=== PATIENT | male | born 1975 | race Two or more races ===

== ENCOUNTER 2016-06-28 06:16 | Day surgery (SDC) | payer OTHER ==
[~2016-06-28] VITALS: Ht 172.7 cm; Wt 104.8 kg
[~2016-06-28 06:16] MED LIST: ACET325T9 PO; AMLO5TAB4 PO; BACITRACIN 50,000 UNIT in IV NORMAL SALINE 1000ML BAG 1,000 ML IRR ONE; DOCU-27 PO; HYDR12.53 PO; IBUP-1007 PO; LEVO25TA55 PO; METH-38 PO; TRAM50TA PO; VANCOMYCIN 1GM IVPB FOR OMNI 250 ML IV PRN
[2016-06-28] MEDS ORDERED: MORPHINE SULFATE 2 MG/ML DISP.SYRIN. IV PRN (07:00)
[2016-06-28] MEDS ORDERED: LIDOCAINE 1% 1 ML SYRINGE. ID PRN (07:00)
[2016-06-28] MEDS ORDERED: IV RINGERS,LACTATED 1000ML 1,000 ML IV SCH (07:00)
[2016-06-28] MEDS ORDERED: ONDANSETRON PF 4 MG/2 ML VIAL. IV PRN (07:00)
[2016-06-28] MEDS ORDERED: fentaNYL PF VIAL 100 MCG/2 ML VIAL IV PRN (07:00)
[2016-06-28] MEDS ORDERED: HYDROmorphone 2 MG/ML VIAL IV PRN (07:00)
[2016-06-28] MEDS ORDERED: PROCHLORPERAZINE 10 MG/2 ML VIAL. IV PRN (07:00)
[2016-06-28] MEDS ORDERED: SCOPOLAMINE 1.5MG PATCH. TD SCH (07:00)
[2016-06-28] MEDS ORDERED: GELATIN SPONGE SIZE 100. ONE (07:34)
[2016-06-28] MEDS ORDERED: LIDOCAINE 1%/EPI 1:100,000 20 ML VIAL. ONE (07:34)
[2016-06-28] MEDS ORDERED: THROMBIN TOPICAL 20,000 UNIT SPRAY.SYRN KIT TP ONE (07:34)
[2016-06-28] MEDS ORDERED: BUPIVACAINE 0.5% 50 ML VIAL. ONE (07:34)
[2016-06-28] MEDS ORDERED: PROPOFOL 100 ML IV ONE (07:59)
[2016-06-28] MEDS ORDERED: REMIFENTANIL 2 MG VIAL. IV ONE (08:07)
[2016-06-28] MEDS ORDERED: fentaNYL PF VIAL 100 MCG/2 ML VIAL ONE (08:07)
[2016-06-28] MEDS ORDERED: ONDANSETRON PF 4 MG/2 ML VIAL. ONE (08:07)
[2016-06-28] MEDS ORDERED: MIDAZOLAM HCL/PF 2 MG/2 ML VIAL. ONE (08:07)
[2016-06-28] MEDS ORDERED: PROPOFOL 20 ML IV ONE (08:07)
[2016-06-28] MEDS ORDERED: DEXAMETHASONE SOD PHOS 20 MG/5 ML VIAL. ONE (08:07)
[2016-06-28] MEDS ORDERED: LIDOCAINE 2% 100 MG/5 ML SYRINGE. ONE (08:07)
[2016-06-28] MEDS ORDERED: ROCURONIUM 50 MG/5 ML VIAL. ONE (08:07)
[2016-06-28] MEDS ORDERED: DESFLURANE > 120 MINUTES IH ONE (08:07)
[2016-06-28] MEDS ORDERED: 0.9 % SODIUM CHLORIDE 50 ML VIAL. IJ ONE (08:08)
[2016-06-28] MEDS ORDERED: MINERAL OIL/PETROLATUM,WHITE OPHTH OINT 3.5GM TUBE. ONE (08:08)
[2016-06-28] MEDS ORDERED: PHENYLEPHRINE 10 MG/ML VIAL. ONE (09:29)
[2016-06-28] MEDS: fentaNYL PF VIAL 100 MCG/2 ML VIAL IV PRN ×2 (11:00→11:05)
--- NOTE | 2016-06-28 11:14 | DISCH ---
DISCHARGE INSTRUCTIONS Condition on Discharge Condition on Discharge: Stable Activity After Discharge Activity Instructions for Disc: Progressive ambulation, Other, see below ( avoid strenuous activity, avoid excessive twisting or bending, no lifting more than 10lbs) Lifting Instructions after Dis: Do not lift >10 pounds Diet after Discharge Diet Texture: Regular Wound Incision Care Wound/Incision Care: Other, see below (keep incision clean and dry, do not soak , scrub, or submerge; may remove dressing day 3 after surgery) Contacting the after DC Call your doctor for: Concerns you may have Follow-Up Follow up with: Dr. Chao in two weeks [phone] SEBASTIEN CHAO MD Jun 28, 2016 11:14
[2016-06-28] MEDS ORDERED: OXYCODONE/APAP 5/325 TABLET. PO ONE (11:30)
[2016-06-28] MEDS ORDERED: OXYC-323 PO (11:32)
[2016-06-28 12:25] VITALS: BP 150/90
--- NOTE | 2016-06-28 13:28 | PDOC ---
BRIEF OPERATIVE NOTE Date: Jun 28, 2016 Pre-Op Diagnosis lumbar disk herniation, lumbar radiculopathy, weakness Post-Op Diagnosis same Procedure Performed right lumbar 4-5 hemilaminotomy with discectomy Surgeon Anabela Financial Aid Director none Anesthesia Type: General Blood Loss 20mL Specimens Obtained disk and decompression Findings large herniated disk fragment Complications none apparent SEBASTIEN CHAO MD Jun 28, 2016 13:28
--- NOTE | 2016-06-28 15:10 | OP ---
DATE OF SURGERY: 06/28/2016 SURGEON: Isac Chao M.D. ACADEMIC SPECIALIST: None. PREOPERATIVE DIAGNOSES: Herniated lumbar disk with lumbar radiculopathy and weakness. POSTOPERATIVE DIAGNOSES: Herniated lumbar disk with lumbar radiculopathy and weakness. PROCEDURE: Right lumbar 4-5 hemilaminotomy with diskectomy with intraoperative neuromonitoring and intraoperative use of microscope. ANESTHESIA: General. COMPLICATIONS: None intraprocedurally. INDICATIONS FOR THE PROCEDURE: The patient is a 40-year-old male who presents with significant right lower extremity pain with ankle weakness, was found to have a prominent disk herniation on the right at lumbar 4-5 with mass effect on the adjacent neural elements. Please refer to the patient chart for additional details. DESCRIPTION OF PROCEDURE: After informed consent was obtained, the patient was brought into the operating room. He was placed under general anesthesia. Neuro monitoring was instituted and baseline potentials were obtained. The patient was placed in the prone position on the Myke frame. All pressure points were checked and padded appropriately. The lumbar region was then prepped and draped in usual sterile fashion. The patient had a previous incision site from the prior L5-S1. Diskectomy done many years ago by another surgeon. Fluoroscopy was utilized to verify the appropriate incision location and the prior incision was noted to be adequate for the lumbar 4-5 procedure. The incision was reopened with a 10 blade scalpel. Monopolar electrocautery was utilized to dissect the avascular midline spinous processes at lumbar 4 and 5 and rightward across the lamina dislocation. Level was verified with fluoroscopy prior to the initiation of decompression, a right hemilaminotomy was performed at dislocation with a pneumatic drill as well as a Kerrison rongeur. The underlying ligament was then gently dissected from the thecal sac with a Terry and nerve hook and removed with a Kerrison rongeur and a prominent annulus was identified and a small annulotomy was performed with 11 blade scalpel, large amount of disk material emerged under pressure. This was gently teased posterolaterally with a blunt nerve hook and removed with pituitary rongeur. A large ____ was removed in this fashion. Additional smaller fragments were also removed with pituitary rongeur. Upon completion of this, the adjacent neural elements were noted to be very well decompressed. This was verified with direct visualization as well as gentle palpation with Terry. Upon completion of decompression and diskectomy, it was also noted that neuro monitoring potentials were slightly improved compared to baseline. Pristine hemostasis was achieved with FloSeal, cottonoids, irrigation and some use of bipolar electrocautery. The wound was generously irrigated with antibiotic irrigation prior the final closure. The muscles and fascia were then reapproximated with 0 Vicryl in simple interrupted fashion. Subcutaneous tissues were reapproximated with 2-0 Vicryl in interrupted inverted fashion and the skin was reapproximated with 4-0 Vicryl in a running subcuticular fashion. Mastisol and Steri-Strips were applied and the wound was dressed with Telfa and Tegaderm. At the end of procedure, all needle and sponge counts correct x 2. The patient was extubated in the operating room and taken to recovery in stable condition. There were no intraprocedural complications apparent. ISAC CHAO MD DR: GERSON/juliet JOB#: [id number] / [id number]
--- NOTE | 2016-07-01 16:51 | PATHOLOGY ---
PATHOLOGY REPORT * * * * * * * * FINAL DIAGNOSIS: Segments of fibrocartilaginous tissue and bone, right lumbar disc and decompression: - Degenerative changes of fibrocartilaginous tissue. COMMENT: There is no evidence of an acute inflammatory process or malignancy. (JPM:; d/t: 07/01/16) REPORT ELECTRONICALLY SIGNED BY: Scott Cunningham M.D. DATE/TIME: 07/01/2016 16:50 * * * * * * * * GROSS PATHOLOGY: Received in formalin labeled "Bola Duran, right lumbar disc and decompression" are multiple segments of payan, rubbery, and gritty tissue admixed with bone. The specimen measures 3.5 x 3.4 x 0.8 cm in aggregate dimensions. The tissue is submitted representatively in cassette A1, following decalcification. (CAA; 06/28/2016) INITIAL CPT CODE(S): A; 95148, 15322 Professional services performed [place] [facility] [address] Technical services performed by [facility] at [address] [place] [address]. [facility] fax attention: Danita Mckinnon SPECIMEN(S) RECEIVED: A.Right lumbar disc and decompression CLINICAL HISTORY: Lumbar radiculopathy, other intervertebral disc displacement lumbar region PATIENT: BOLA DURAN /AGE: 9 1975 (Age: 40) PATIENT #: [id number] ALT CASE #: SPECIMEN COLLECTION DATE: 06/28/2016 SPECIMEN RECEIVED DATE: 06/28/2016 [facility] - [address] [place] [address] - PHONE: [phone] * * * END OF REPORT * * *
== END 2016-06-28 12:46 | disposition home or self-care (01) ==
LOC: SURG 06:16 → EDBD 06:16 → SURG 12:46
PROVIDERS: ATTEND Neurological Surgery
DX: M51.16 Intervertebral disc disorders with radiculopathy, lumbar region (principal); E66.9 Obesity, unspecified; E03.9 Hypothyroidism, unspecified; I10 Essential (primary) hypertension; Z87.39 Personal history of other diseases of the musculoskeletal system and connective tissue
CPT/HCPCS: 63030; 76000; 87641; J1100; J2250; J2405; J2704; J3010; J3370; J3490; J7030; J7120; 36415; 88304; 88311; J0780

== ENCOUNTER → 2016-09-26 | Outpatient (CLI) | payer OTHER ==
[~2016-09-26] MED LIST changes: -BACITRACIN 50,000 UNIT in IV NORMAL SALINE 1000ML BAG 1,000 ML IRR ONE; +DOCU-109 PO; -DOCU-27 PO; +GADOBUTROL 10 MMOL/10 ML VIAL IV ONE; +OXYC-323 PO; -VANCOMYCIN 1GM IVPB FOR OMNI 250 ML IV PRN
--- NOTE | 2016-09-26 09:18 | KCIC ---
MRI STUDY OF THE LUMBAR SPINE WITH AND WITHOUT CONTRAST Clinical indications: Right-sided lumbar radiculopathy. Status post L4-5 surgery 3 months ago. TECHNIQUE: Pre and postcontrast enhanced MRI sequences of the lumbar spine were performed in the sagittal and axial planes. A total of 10 cc of Gadavist was given intravenously. COMPARISON: None available facility. FINDINGS: No compression fracture or discitis or marrow infiltrative process is seen. The conus medullaris ends at the T12 level and appears normal morphologically and no abnormal enhancement is seen. No abnormal spinal canal enhancement is seen. At T12-L1, no focal disc protrusion or spinal canal stenosis or neural foraminal narrowing is seen. At L1-L2, no focal disc protrusion or spinal canal stenosis or neural foraminal narrowing is seen. At L2-3, no focal disc protrusion or spinal canal stenosis or neural foraminal narrowing is seen. At L3-L4, mild degenerative endplate spurring is seen with mild diffuse disc bulging. There is a small right lateral extradural defect. There is enhancement here consistent with epidural fibrosis. There is enhancement of the posterior annulus consistent with granulation tissue which may be secondary to previous partial discectomy. Partial laminectomy on the right side is seen at this level. No significant spinal canal stenosis or neural foraminal narrowing is seen. At L4-5, mild retrolisthesis is seen. There is moderate degenerative endplate spurring and mild diffuse disc bulging which extends into the inferior aspect of the neural foramina bilaterally. There is mild narrowing of the neural foramina bilaterally. There is a partial laminectomy on the right side at this level. There is a small extradural defect on the right side. There is enhancement of this area consistent with epidural fibrosis. There is enhancement of the descending right L5 nerve root as it exits the thecal sac consistent with perineural fibrosis. There is enhancement of the posterior annulus consistent with granulation tissue secondary to a partial discectomy. No significant spinal canal stenosis is seen. At L5-S1, no focal disc protrusion or spinal canal stenosis or neural foraminal narrowing is seen. There is edema of the paraspinous muscles and soft tissues on the right side from the L3 through S1 levels consistent with postoperative soft tissue edema. IMPRESSION: Right-sided epidural fibrosis at L3-4 and L4-5 with perineural fibrosis of the descending right L5 nerve root at L4-5 secondary to recent partial discectomy at L3-4 and L4-5. No recurrent focal disc protrusion or extrusion is seen at these levels. No epidural abscess or hematoma is evident. No significant spinal canal stenosis. Mild bilateral neural foraminal narrowing at L4-5. No acute compression fracture. Electronically signed by: Filipe Flores MD (09/26/2016 9:15 AM) [id number]
== END | disposition home or self-care (01) ==
LOC: KCIC MRI 07:37
PROVIDERS: ATTEND Neurological Surgery
DX: M54.12 Radiculopathy, cervical region (principal)
CPT/HCPCS: 72158; A9585

== ENCOUNTER → 2017-06-17 | Outpatient (CLI) | payer OTHER ==
[2017-06-17] MEDS: LIDOCAINE 1% Multi-Dose 20 ML VIAL. ID (10:45)
[2017-06-17] MEDS: BUPIVACAINE MPF 0.5% 10 ML VIAL for KCIC. IJ (10:45)
[2017-06-17] MEDS: IOHEXOL 300 MG/ML 50 ML VIAL. INT ART (10:45)
[2017-06-17] MEDS: methylPREDNISolone ACETATE 40 MG/ML VIAL. INT ART (10:45)
== END | disposition home or self-care (01) ==
LOC: KCIC 09:46
DX: M19.011 Primary osteoarthritis, right shoulder (principal); G89.29 Other chronic pain
CPT/HCPCS: 20610; 77002; J1030; Q9967

== ENCOUNTER → 2019-05-12 | Outpatient (CLI) | payer OTHER ==
[2017-08-27 09:53] VITALS: BP_DIAS 55
[~2019-05-12] MED LIST changes: +AMLO10TA4 PO; +ASPI-630 PO; -GADOBUTROL 10 MMOL/10 ML VIAL IV ONE; +GADOTERATE 7.5 MMOL/15ML VIAL. IVP ONE; +HYDR-2145 PO; -HYDR12.53 PO; +HYDR12.575 PO; +LORA10CA PO; -OXYC-323 PO; +OXYC1TAB15 PO; +PANT20TA2 PO; +SIMV10TA15 PO
--- NOTE | 2019-05-12 11:55 | KCIC ---
MRI Lumbar Spine without and with contrast History: Low back pain, previous surgeries, new right hip and leg pain for 3 months Technique: Multiplanar, multi sequential pre and postcontrast MR imaging was performed of the lumbar spine. Comparison: September 26, 2016 Findings: There is again likely transitional anatomy. The same numbering is utilized as for previous exam. Most inferior formed, although rudimentary intervertebral disc space is considered L5-S1. There is again minimal posterior subluxation of what is considered L4 relative to L5. Lumbar vertebral body stature is overall maintained. There is again fairly severe degenerative disc disease at L4-5 and minimally at L3-4. There is no significant marrow edema. There is no nodular enhancement of the conus or cauda equina, no enhancement in the intervertebral disc spaces. Conus terminates near T12-L1. There is posterior annular tear L4-5. L1-L2: Neural foramina and spinal canal are adequate. L2-L3: Neural foramina and spinal canal are adequate. L3-L4: There is very shallow protrusion with adjacent enhancing fibrosis in the anterior far right lateral recess, mild indentation upon the ventral thecal sac and contact of the descending right L4 nerve root by enhancing fibrosis with very minimal posterior displacement, minimal narrowing of the far right lateral recess. Neural foramina are adequate. L4-L5: There is again disc osteophyte complex superimposed on the posteriorly subluxed L4 vertebral body margin, near the ventral surfaces of the descending L5 nerve roots without significant displacement. There is mild enhancing fibrosis in the anterior far right lateral recess near the ventral surface descending right L5 nerve root. Spinal canal is overall adequate. There is minimal perineural enhancement about the descending right S1 nerve root. There is moderate to severe narrowing of the right neural foramen from disc osteophyte complex and facet with contact of the exiting right L5 nerve root, overall mild narrowing of the left neural foramen with contact undersurface exiting left L4 nerve root by disc osteophyte complex also unchanged. There is again right laminectomy defect. L5-S1: Neural foramina and spinal canal are adequate. Impression: 1. There is transitional anatomy, minimal posterior subluxation of what is considered L4 relative to L5, assumption of 5 lumbar type vertebral bodies. There is no new significant lumbar spinal stenosis, mild right lateral recess stenosis at L3-4 and disc osteophyte complex at L4-5 near the descending L5 nerve roots without significant displacement. There is moderate to severe narrowing of the right L4-5 neural foramen with contact exiting right L4 nerve root, mild narrowing of the left L4-5 neural foramen with contact exiting left L4 nerve root by disc osteophyte complex. There is fairly advanced degenerative disc disease at L4-5, minimally at L3-4. There is mild spondylosis.. Electronically signed by: Elías Donaldson MD (05/12/2019 11:53 AM) [id number]
== END | disposition home or self-care (01) ==
LOC: KCIC MRI 08:37
DX: M51.36 Other intervertebral disc degeneration, lumbar region (principal); M53.2X6 Spinal instabilities, lumbar region; M51.26 Other intervertebral disc displacement, lumbar region; M25.78 Osteophyte, vertebrae; M48.061 Spinal stenosis, lumbar region without neurogenic claudication; M47.816 Spondylosis without myelopathy or radiculopathy, lumbar region; I10 Essential (primary) hypertension; Z88.8 Allergy status to other drugs, medicaments and biological substances; Z79.01 Long term (current) use of anticoagulants
CPT/HCPCS: 72158; A9575

== ENCOUNTER 2019-10-12 05:59 | Inpatient (IN) | payer OTHER ==
[2019-10-12] VITALS (13 sets, daily range): BP systolic 108–146; BP diastolic 61–99
[~2019-10-12] VITALS: Ht 172.7 cm; Wt 100.7 kg
[~2019-10-12 05:59] MED LIST changes: -GADOTERATE 7.5 MMOL/15ML VIAL. IVP ONE; +MAGN100T6 PO; +PROP20TA PO
[2019-10-12] MEDS ORDERED: BACITRACIN 50,000 UNIT in IV NORMAL SALINE 1000ML BAG 1,000 ML IRR ONE (06:00)
[2019-10-12 06:32] LABS: BASO % 1 % (0-3); EOS # 0.3 x10^3/uL (0.0-0.7); EOS % 4 % (0-3); HEMATOCRIT 41.2 % (39.0-53.0); HEMOGLOBIN 14.4 g/dL (13.0-17.5); LYMPH # 2.6 x10^3/uL (1.0-4.8); LYMPH % 38 % (24-48); MEAN CORPUSCULAR HEMOGLOBIN 28 pg (25-35); MEAN CORPUSCULAR HGB CONC 35 g/dL (31-37); MEAN CORPUSCULAR VOLUME 81 fL (79-100); MONO # 0.6 x10^3/uL (0.0-1.1); MONO % 9 % (0-9); NEUT # 3.3 x10^3/uL (1.8-7.7); NEUT % 48 % (31-73); PLATELET COUNT 244 x10^3/uL (140-400); RED BLOOD COUNT 5.12 x10^6/uL (4.30-5.70); RED CELL DISTRIBUTION WIDTH 13.2 % (11.5-14.5); WHITE BLOOD COUNT 6.8 x10^3/uL (4.0-11.0)
--- NOTE | 2019-10-12 06:42 | EKG ---
[facility] [address] [place] [address] Test Date: 2019-10-12 Test Time: 06:38:46 Pat Name: SULY DELVALLE Department: Room: [place] [address] Gender: M Delivery Tech: SHAY : 1975 Requested By: SEBASTIEN CHAO Order Number: [id number] Reading MD: Measurements Intervals [place] Rate: 75 P: 39 NM: 200 QRS: 22 QRSD: 102 T: 24 QT: 396 QTc: 445 Interpretive Statements SINUS RHYTHM NORMAL ECG RI6.01 No previous ECG available for comparison
[2019-10-12 06:49] LABS: ALBUMIN 4.5 g/dL (3.4-5.0); ALBUMIN/GLOBULIN RATIO 1.3 (1.0-1.7); CALCIUM 9.3 mg/dL (8.5-10.1); CREATININE 0.9 mg/dL (0.7-1.3); GFR 92.1; POTASSIUM 3.5 mmol/L (3.5-5.1); TOTAL BILIRUBIN 0.7 mg/dL (0.2-1.0); TOTAL PROTEIN 8.1 g/dL (6.4-8.2)
[2019-10-12 06:54] LABS: PROTHROMBIN TIME PATIENT 13.7 SEC (11.7-14.0)
[2019-10-12] MEDS ORDERED: ONDANSETRON PF 4 MG/2 ML VIAL. IV PRN (07:00)
[2019-10-12] MEDS ORDERED: HYDROmorphone 2 MG/ML VIAL IV PRN (07:00)
[2019-10-12] MEDS ORDERED: fentaNYL PF VIAL 100 MCG/2 ML VIAL IV PRN (07:00)
[2019-10-12] MEDS ORDERED: MORPHINE SULFATE 2 MG/ML VIAL. IV PRN (07:00)
[2019-10-12] MEDS ORDERED: IV RINGERS,LACTATED 1000ML 1,000 ML IV SCH (07:00)
[2019-10-12] MEDS ORDERED: PROCHLORPERAZINE 10 MG/2 ML VIAL. IV PRN (07:00)
--- NOTE | 2019-10-12 07:01 | RAD ---
PA and lateral chest x-rays HISTORY: Preoperative evaluation for lumbar fusion. FINDINGS: Heart size normal. Mediastinal silhouette is normal. No pneumothorax, pulmonary opacities or pleural effusions. Bones are unremarkable. IMPRESSION: No acute process. Electronically signed by: Kana Demarco MD (10/12/2019 6:58 AM) [facility]
[2019-10-12] MEDS ORDERED: BUPIVACAINE-EPI 0.5%-1:200000 MPF 30 ML VIAL. ONE (07:02)
[2019-10-12] MEDS ORDERED: GELATIN SPONGE SIZE 100. ONE (07:02)
[2019-10-12] MEDS ORDERED: LIDOCAINE 1%/EPI 1:100,000 20 ML VIAL. ONE (07:03)
[2019-10-12] MEDS ORDERED: THROMBIN TOPICAL 20,000 UNIT SPRAY.SYRN KIT TP ONE (07:03)
[2019-10-12] MEDS ORDERED: SCOPOLAMINE 1.5MG PATCH. TD ONE (07:27)
[2019-10-12] MEDS ORDERED: PHENYLEPHRINE 10 MG/ML VIAL. ONE (07:42)
[2019-10-12] MEDS ORDERED: PROPOFOL 10 MG/ML (20ML) VIAL. IV ONE (07:43)
[2019-10-12] MEDS ORDERED: fentaNYL PF VIAL 100 MCG/2 ML VIAL ONE ×2 (07:43→14:02)
[2019-10-12] MEDS ORDERED: LIDOCAINE 2% PF 5 ML VIAL. ONE (07:43)
[2019-10-12] MEDS ORDERED: MIDAZOLAM HCL/PF 2 MG/2 ML VIAL. ONE (07:43)
[2019-10-12] MEDS ORDERED: DEXAMETHASONE SOD PHOS 4 MG/ML VIAL ONE (07:44)
[2019-10-12] MEDS ORDERED: ONDANSETRON PF 4 MG/2 ML VIAL. ONE (07:44)
[2019-10-12] MEDS ORDERED: ROCURONIUM 50 MG/5 ML VIAL. ONE (07:46)
[2019-10-12] MEDS ORDERED: SUCCINYLCHOLINE 200 MG/10 ML VIAL. ONE (07:47)
[2019-10-12] MEDS ORDERED: 0.9 % SODIUM CHLORIDE 20 ML VIAL. IJ ONE ×2 (07:48→10:51)
[2019-10-12] MEDS ORDERED: REMIFENTANIL 2 MG VIAL. IV ONE ×2 (07:50→10:51)
[2019-10-12] MEDS ORDERED: PROPOFOL 0 ML IV ONE (07:55)
--- NOTE | 2019-10-12 08:00 | RAD ---
CT LUMBAR SPINE WO CONTRAST History:Reason: BRAIN LAB. LUMBAR STENOSIS, RADICULOPATHY / Spl. Instructions: / History: Technique: Noncontrast CT was performed of the lumbar spine. Multiplanar reconstructions were performed. Exposure: One or more of the following individualized dose reduction techniques were utilized for this examination: 1. Automated exposure control 2. Adjustment of the mA and/or kV according to patient size 3. Use of iterative reconstruction technique. Comparison: MRI May 12, 2019 Findings: Transitional lumbosacral anatomy with sacralization of L5. L5-S1 is identified on axial sequence 2 image 205. Normal vertebral body height. No fracture. Slight retrolisthesis L4 on L5, unchanged. T12-L1: Minimal disc bulge. No canal or neuroforaminal narrowing. L1-L2: Minimal disc bulge. No canal or neuroforaminal narrowing. L2-L3: Broad-based disc bulge. Subarticular recess narrowing. No canal narrowing. No neuroforaminal narrowing. Mild facet arthropathy. L3-L4: Broad based disc bulge. Mild subarticular recess narrowing. No canal narrowing. Mild facet arthropathy. No neuroforaminal narrowing. L4-L5: Retrolisthesis. Vacuum disc phenomenon. Broad-based disc bulge. Right greater left subacute recess narrowing with abutment of the right descending L5 nerve root. No canal narrowing. Moderate facet arthropathy. Moderate right and mild to moderate left neuroforaminal narrowing. L5-S1: No canal or neuroforaminal narrowing. Impression: 1. Transitional lumbosacral anatomy with sacralization of L5. 2. Multilevel lumbar spondylosis most prominent L4-5. 3. Neuroforaminal narrowing most prominent L4-5. Electronically signed by: Nino Owens DO (10/12/2019 7:57 AM) [id number]
[2019-10-12] MEDS ORDERED: BUPIVACAINE MPF 0.5% 30 ML VIAL. ONE (08:08)
[2019-10-12] MEDS ORDERED: SCOPOLAMINE 1.5MG PATCH. TD SCH (09:00)
[2019-10-12] MEDS ORDERED: ePHEDrine PF IN SALINE 50 MG/10 ML SYRINGE. IV ONE (09:21)
[2019-10-12] MEDS ORDERED: PROPOFOL 200 ML IV ONE (10:36)
[2019-10-12] MEDS ORDERED: HYDROmorphone 2 MG/ML VIAL ONE (11:48)
[2019-10-12] MEDS ORDERED: SEVOFLURANE > 120 MINUTES. IH ONE (12:49)
[2019-10-12] MEDS ORDERED: ceFAZolin SODIUM IV Push 1 GM VIAL. IVP ONE (12:54)
[2019-10-12] MEDS ORDERED: GLYCOPYRROLATE 1 MG/5 ML VIAL. ONE (13:11)
[2019-10-12] MEDS ORDERED: NEOSTIGMINE METHYLSULFATE 5 MG/5 ML SYRINGE. ONE (13:11)
[2019-10-12] MEDS: IV NORMAL SALINE 1000ML BAG 1,000 ML IV SCH (13:51)
--- NOTE | 2019-10-12 13:51 | PDOC ---
BRIEF OPERATIVE NOTE Date: Oct 12, 2019 Pre-Op Diagnosis Lumbar radiculopathy, lumbar foraminal stenosis, lumbar spondylosis Post-Op Diagnosis same Procedure Performed Right L4-5 foraminotomy, instrumented posterior fusion L4-5, transforaminal interbody fusion L4-5 Anesthesia Type: General Blood Loss 50mL Findings collapsed disk L4-5, right foraminal stenosis L4-5 Complications none apparent SEBASTIEN CHAO MD Oct 12, 2019 13:51
[2019-10-12] MEDS ORDERED: diphenhydrAMINE HCL 25 MG CAPSULE PO PRN (14:00)
[2019-10-12] MEDS ORDERED: oxyCODONE/APAP 5/325 1 TAB TABLET PO PRN (14:00)
[2019-10-12] MEDS ORDERED: diphenhydrAMINE 50 MG/ML VIAL IV PRN (14:00)
[2019-10-12] MEDS ORDERED: 0.9 % SODIUM CHLORIDE 10 ML DISP.SYRIN. IV PRN (14:00)
[2019-10-12] MEDS ORDERED: ZOLPIDEM 5 MG TABLET. PO PRN (14:00)
[2019-10-12] MEDS ORDERED: MAG HYDROX/ALUMINUM HYD/SIMETH 30 ML ORAL.SUSP PO PRN (14:00)
[2019-10-12] MEDS ORDERED: NALOXONE 0.4 MG/ML VIAL. IV PRN (14:00)
[2019-10-12] MEDS: fentaNYL PF VIAL 100 MCG/2 ML VIAL IV PRN ×2 (14:04→14:12)
[2019-10-12] MEDS ORDERED: ACETAMINOPHEN 325 MG TABLET. PO PRN (14:15)
--- NOTE | 2019-10-12 14:30 | NUR ---
received from recovery. he is alert and oriented. guards at bedside. he states that he has numbness along the right lateral leg from hip to mid ornelas that he is unchanged from surgery except maybe less. he has good sensation, motion and pulses bilateral lower extremities Addendum: 10/12/19 at 1645 by REGINA MATOS RN he was rating his pain an ?"8" medicated with fentanyl
[2019-10-12] MEDS: fentaNYL PF VIAL 100 MCG/2 ML VIAL IVP PRN ×3 (15:18→22:15)
[2019-10-12] MEDS: FERROUS SULFATE 325 MG TABLET. PO SCH (17:31)
[2019-10-12] MEDS: oxyCODONE/APAP 5/325 1 TAB TABLET PO PRN ×2 (17:37→21:37)
[2019-10-12] MEDS ORDERED: MAGNESIUM CITRATE PO SCH (21:00)
[2019-10-12] MEDS: SENNOSIDES/DOCUSATE 8.6/50MG TABLET. PO SCH (21:36)
[2019-10-12] MEDS: DOCUSATE SODIUM 100 MG CAPSULE. PO SCH (21:36)
[2019-10-12] MEDS: METHOCARBAMOL 750 MG TABLET PO SCH (21:36)
[2019-10-13] VITALS (7 sets, daily range): BP systolic 112–133; BP diastolic 57–84
[2019-10-13] MEDS: oxyCODONE/APAP 5/325 1 TAB TABLET PO PRN ×5 (01:27→22:02)
[2019-10-13 02:09] LABS: HEMOGLOBIN A1C 5.2 % (4.8-5.6)
[2019-10-13] MEDS: fentaNYL PF VIAL 100 MCG/2 ML VIAL IVP PRN ×5 (03:42→21:55)
[2019-10-13] MEDS: METHOCARBAMOL 750 MG TABLET PO SCH ×3 (07:53→20:09)
[2019-10-13] MEDS: MULTIVITAMIN with MINERAL TABLET. PO SCH (07:53)
[2019-10-13] MEDS: DOCUSATE SODIUM 100 MG CAPSULE. PO SCH ×2 (07:53→21:00)
[2019-10-13] MEDS: LEVOTHYROXINE 25 MCG TABLET. PO SCH (07:53)
[2019-10-13] MEDS: SENNOSIDES/DOCUSATE 8.6/50MG TABLET. PO SCH ×2 (07:53→20:09)
--- NOTE | 2019-10-13 08:00 | NUR ---
resting in bed continues to rate his pain 7-8. he has good motion, pulses bilateral lower extremities. numbness in right leg is unchanged; numbness to knee is unchanged less numb from knee to ornelas. dressing to back has a moderate amount serous drainage
[2019-10-13] MEDS: FERROUS SULFATE 325 MG TABLET. PO SCH ×2 (09:13→18:06)
[2019-10-13] MEDS: PROPRANOLOL 10 MG TABLET. PO SCH (09:14)
[2019-10-13] MEDS: hydroCHLOROthiazide 25 MG TABLET PO SCH (09:14)
--- NOTE | 2019-10-13 10:35 | PDOC ---
Date of Service: DATE: 10/13/19 TIME: 10:30 Progress Note: S: reports some residual numbness right leg, improved more distally, has not yet been OOB O: AF/VSS, some serosang on dressing, dry/intact, strength and sensation stable A: POD 1 lumbar decompression and TLIF P: mobilize with PT/increase activities as able Justicifation of Admission Dx: Justifications for Admission: Justification of Admission Dx: Comment: (post operative pain control and mobilization) SEBASTIEN CHAO MD Oct 13, 2019 10:35
[2019-10-13] MEDS: IV NORMAL SALINE 1000ML BAG 1,000 ML IV SCH (13:51)
--- NOTE | 2019-10-13 15:30 | NUR ---
up with physical therapy and became dizzy and orthostatic. blood pressure was 90/43 hr 89 resp 20. transferred to recliner after ambulating to bathroom with assist and walker. guards remain in place.
--- NOTE | 2019-10-13 16:30 | NUR ---
remains in recliner. states he is feeling better at this time watches tv
--- NOTE | 2019-10-13 18:00 | NUR ---
rests in bed states his pain is moderate at this time. medicated with Percocet.
[2019-10-14] MEDS: fentaNYL PF VIAL 100 MCG/2 ML VIAL IVP PRN ×2 (01:31→07:21)
[2019-10-14 03:00] VITALS: BP 135/82
[2019-10-14] MEDS: oxyCODONE/APAP 5/325 1 TAB TABLET PO PRN ×2 (04:01→09:16)
[2019-10-14 07:00] VITALS: BP 112/69
[2019-10-14] MEDS: LEVOTHYROXINE 25 MCG TABLET. PO SCH (07:20)
[2019-10-14] MEDS: METHOCARBAMOL 750 MG TABLET PO SCH ×2 (09:17→13:46)
[2019-10-14] MEDS: MULTIVITAMIN with MINERAL TABLET. PO SCH (09:17)
[2019-10-14] MEDS: SENNOSIDES/DOCUSATE 8.6/50MG TABLET. PO SCH (09:17)
[2019-10-14] MEDS: hydroCHLOROthiazide 25 MG TABLET PO SCH (09:18)
[2019-10-14] MEDS: FERROUS SULFATE 325 MG TABLET. PO SCH (09:18)
[2019-10-14] MEDS: PROPRANOLOL 10 MG TABLET. PO SCH (09:18)
[2019-10-14] MEDS: DOCUSATE SODIUM 100 MG CAPSULE. PO SCH (09:18)
--- NOTE | 2019-10-14 10:43 | PDOC ---
Date of Service: DATE: 10/14/19 TIME: 10:33 Progress Note: S: reports improved pain today, still some residual right leg numbness, reports significant improvement of tingling distal to knee reports OOB without problems since episode of dizziness yesterday O: AAOx4, NAD, LYNN 5/5, sensation intact LT, dressing dry, flat, some serosang on dressing A: 43M POD 2 lumbar decompression and TLIF P: continue to mobilize with physical therapy, anticipate d/c today if continues to do well -upon d/c, recommend not less than 30 day admission to his facility[facility] for recovery and pain control -keep incision clean and dry; do not soak, scrub, or submerge incision, cover with breathable gauze and tape, change dressing daily upon d/c -please have walker available at all times for as needed assistance with ambulation -no strenuous activity, no lifting more than 10lbs, no excess bending or twisting -follow-up in the office in two weeks for post-op reassessment [phone] -call with any problems, questions, concerns Justicifation of Admission Dx: Justifications for Admission: Justification of Admission Dx: Comment: (post operative pain control and mobilization) SEBASTIEN CHAO MD Oct 14, 2019 10:43
[2019-10-14 11:00] VITALS: BP 115/76
[2019-10-14] MEDS ORDERED: METH-38 PO (12:35)
[2019-10-14] MEDS ORDERED: SENN1TAB37 PO (12:36)
[2019-10-14] MEDS ORDERED: OXYC1TAB15 PO (12:37)
--- NOTE | 2019-10-14 13:27 | NUR ---
Report called to facility and spoke with Makayla.
--- NOTE | 2019-10-14 14:40 | NUR ---
Discharged back to facility.
--- NOTE | 2019-10-14 15:07 | PATHOLOGY ---
[facility] Accession Number: [id number] . 01 Material submitted: . vertebral column - DISC DECOMPRESSION . 01 Clinical history: . Chronic back pain . 02 Diagnosis: Segments of fibrocartilaginous tissue and bone, disc decompression: - Degenerative changes of fibrocartilagionous tissue. (JPM:jaylin; 10/14/2019) S 10/14/2019 1430 Local . 02 Comment: There is no evidence of an acute inflammatory process or malignancy. (JPM:jaylin; 10/14/2019) . 02 Electronically signed: . Scott Cunningham MD, Pathologist NPI- [id number] . 01 Gross description: . The specimen is received in formalin, labeled "ReneeBola", "disc decompression". Received are multiple fragments of pale payan-naqvi gritty tissue and bone, measuring 3.0 x 2.5 x 0.7 cm in aggregate dimensions. [employer] sections are submitted in cassette A1, following light decalcification. MICHELLE/ARIANNA 10/14/2019 1306 Local . 02 Pathologist provided ICD-10: M51.36 . 02 CPT . 718396, [id number] Specimen Comment: A courtesy copy of this report has been sent to [phone], [phone] Specimen Comment: [id number] Specimen Comment: Report sent to / DR LANDAVERDE Performed at: 01 [facility] [address], [place] [id number] MD Martinez Ramos MD Phone: [phone] Performed at: 02 [facility] [address] [place], [place] [id number] MD Scott Cunningham MD Phone: [phone]
--- NOTE | 2019-10-20 11:36 | OP ---
DATE OF SURGERY: 10/12/2019 PREOPERATIVE DIAGNOSES: Right foraminal stenosis, lumbar L4-L5; recurrent disk herniation, lumbar radiculopathy, weakness and lumbar spondylosis. PROCEDURE: Right L4-L5 foraminotomy with posterolateral fusion utilizing allograft and autograft including bone marrow taken from a separate fascial incision with pedicle screw posterior instrumentation with a right-sided transforaminal lumbar interbody fusion utilizing a PEEK cage with allograft mixed with autograft marrow taken from a separate fascial incision. Also use of live neuro monitoring as well as use of frameless CT-guided stereotaxis. ANESTHESIA: General. COMPLICATIONS: None. INDICATIONS FOR THE PROCEDURE: The patient is a 43-year-old male with right lower extremity pain and ankle weakness that has been refractory to multiple nonsurgical treatments. Please refer to the patient's chart for additional details. DESCRIPTION OF PROCEDURE: After informed consent was obtained, the patient was brought to the operating room. He was placed under general anesthesia. He was placed in the prone position on the Ino table. All pressure points were checked and padded appropriately. Ancef was instituted as a prophylactic antibiotic. The patient received stereotactic lumbar CT prior to the procedure. The left iliac crest was accessed with pins and the stereotactic reference array was attached after the entire lumbar region was prepped and draped in the usual sterile fashion. The stereotactic CT was localized with 3D C-arm images and fused with good localization. The patient's prior lumbar incision was reopened and extended to accommodate the planned fusion site. Monopolar electrocautery was utilized to dissect the avascular midline to the spinous processes of lumbar 4 and lumbar 5 and laterally across the lamina. Previous surgery site had significant scar tissue, this was gently removed with curettes and Kerrison rongeurs. The trajectories sites for pedicle screws were instituted bilaterally at lumbar 4 and lumbar 5 utilizing stereotactic localization at each site. An awl was instituted down the trajectory of the pedicle. There was stereotactic localization as well as live neuro monitoring. Sites were tapped with live neuro monitoring and for safe trajectory, the integrity of each trajectory was verified with the ball tip probe as well as stereotactic guidance as well as a verification with neuro monitoring. The left-sided pedicle screws were then instituted at lumbar 4 and lumbar 5. After this was completed, the transforaminal approach was instituted on the right utilizing a pneumatic drill as well as Kerrison rongeurs. The nerve root was identified and exposed and a foraminotomy was completed. Once this was complete, the disk space was localized and accessed with a pituitary rongeur. The disk space was quite collapsed and disk space spreaders were used in a tangential fashion and with increasing size to widen the disk space. Trials were instituted to further develop the disk space for interbody graft. Disk material was removed with pituitary rongeurs. Disk scraper was utilized to gently decorticate the endplates for institution of the graft. Graft material was allograft and a Jamshidi needle was utilized to obtain marrow from the adjacent iliac crest under stereotactic guidance through a separate fascial incision. Bone marrow and allograft was combined and placed into the chosen interbody cage. The cage was instituted in the disk space and with good position, this was verified with fluoroscopy. Once this was complete, the right-sided pedicle screws were instituted with stereotaxis as well as live neuro monitoring. All pedicle screws had good purchase and position was verified with fluoroscopy and appeared to be good position, rods were instituted bilaterally and secured to the pedicle screws with setscrews and these were torqued to technical sales representatives's specification. The adjacent posterolateral bone was decorticated with pneumatic drill and additional allograft mixed with autograft marrow and was instituted as fusion substrate. Upon completion of this, the final fluoroscopic image was utilized to verify appropriate position. A gentle compression was instituted at the bilateral pedicle screws prior to the final tightening to create some compression of the interbody graft. Stereotactic array was subsequently removed and sites were cleaned with irrigation and dressed with Dermabond. Pristine hemostasis was achieved with some use of bipolar electrocautery as well as ____ generous antibiotic irrigation. Muscles and fascia were then reapproximated with 0 Vicryl in a simple interrupted fashion. Subcutaneous tissues reapproximated with 2-0 Vicryl in interrupted inverted fashion. Skin was reapproximated with 4-0 Vicryl in a running subcuticular fashion. Mastisol and Steri-Strips were applied and the wound was dressed with Telfa, 4 x 4, Tegaderm. At the end of procedure, all needle and sponge counts were correct x 2. The patient was extubated in the operating room and taken to recovery in stable condition. There were no intraprocedural complications apparent. SEBASTIEN CHAO MD DR: Wilman JOB#: [id number] / [id number]
--- NOTE | 2019-11-10 14:08 | DS ---
DATE OF DISCHARGE: 10/14/2019 HOSPITAL COURSE: The patient is a 43-year-old gentleman with lower extremity pain localized to foraminal stenosis from degenerative changes as well as disk bulge on the right at L4-L5. He has had prior surgeries and has been refractory to multiple nonsurgical treatments. On 10/12/2019, he underwent a right L4-L5 foraminotomy with a transforaminal lumbar interbody fusion with posterior instrumentation. He tolerated the procedure well and was subsequently admitted postoperatively. He reported improvement of leg pain upon completion of the procedure. While inpatient, he worked with physical and occupational therapy and gradually increased his activity. His pain was controlled with oral medication. On 10/14/2019, he met criteria for discharge. He was discharged to his previous institution with an admission to his [facility]. He is discharged in good condition. He was discharged with instructions to have his dressing change daily. He is to avoid getting the incision wet. He is to keep it clean and dry and not to soak, scrub or submerge the incision. Activity is to be limited to no lifting over 10 pounds, no strenuous activity, no excess twisting, bending, no stairs until he worked with physical therapy at his facility. He was discharged with a prescription for pain medication, muscle relaxant and stool softener. He is to follow up in Neurosurgery [facility] 2 weeks postoperatively. We are to be notified with any questions or concerns. SEBASTIEN CHAO MD DR: GERSON/juliet JOB#: [id number] / [id number]
== END 2019-10-14 14:40 | DRG 460 ==
LOC: OPSVCIP 05:59 → EEVIPCON 08:30 → 4 NORTH 14:29
PROVIDERS: ADMIT Neurological Surgery; ATTEND Neurological Surgery
PROC: 07DR0ZZ Extraction of Iliac Bone Marrow, Open Approach (ICD-10-PCS; 2019-10-12)
PROC: 4A11X4G Monitoring of Peripheral Nervous Electrical Activity, Intraoperative, External Approach (ICD-10-PCS; 2019-10-12)
PROC: 0SG00AJ Fusion of Lumbar Vertebral Joint with Interbody Fusion Device, Posterior Approach, Anterior Column, Open Approach (ICD-10-PCS; principal; 2019-10-12 08:30)
PROC: 01NB0ZZ Release Lumbar Nerve, Open Approach (ICD-10-PCS; 2019-10-12 08:30)
DX: M47.26 Other spondylosis with radiculopathy, lumbar region (principal); M51.16 Intervertebral disc disorders with radiculopathy, lumbar region; M48.061 Spinal stenosis, lumbar region without neurogenic claudication; Z79.899 Other long term (current) drug therapy; Z20.828 Contact with and (suspected) exposure to other viral communicable diseases; Z88.8 Allergy status to other drugs, medicaments and biological substances; I10 Essential (primary) hypertension; E03.9 Hypothyroidism, unspecified; K21.9 Gastro-esophageal reflux disease without esophagitis
CPT/HCPCS: 36415; 71046; 72131; 76000; 80053; 83036; 85025; 85610; 85730; 88304; 88311; 93005; 99406; A7015; C1713; J0330; J0690; J1100; J1170; J2250; J2370; J2405; J2704; J2710; J3010; J3490; J7030; J7120; 97110-GP; 97116-GP; C1776; G0378; U0003-CS